=== PATIENT | male | born 1995 | race Caucasian/White ===

== ENCOUNTER 2017-11-24 17:56 | Emergency (ER) | payer BC ==
[2017-11-24 18:03] VITALS: RESP 18
[2017-11-24] MEDS ORDERED: SODIUM CHLORIDE 0.9% 500 ML IV STA (18:10)
[2017-11-24] MEDS ORDERED: DICYCLOMINE 10 MG/ML 2 ML AMP IM STA (18:10)
[2017-11-24] MEDS ORDERED: ONDANSETRON 4 MG/2 ML VIAL IVP STA (18:10)
[2017-11-24] MEDS ORDERED: FAMOTIDINE 20 MG/2 ML VIAL IV STA (18:11)
--- NOTE | 2017-11-24 18:13 | ED ---
General Adult HPI - General Chief complaint: Abdominal Pain Stated complaint: Nausea/Diarrhea Time Seen by Provider: 11/24/17 18:06 Source: patient, RN notes reviewed Mode of arrival: ambulatory Limitations: no limitations - History of Present Illness Initial comments: Patient is a pleasant 22-year-old male presenting to the emergency department with complaints of loose stools. Onset was 48 hours ago. Patient is having 5- 6 small episodes of loose watery stools daily. Patient has some occasional abdominal cramping and indigestion. Patient has slightly decreased appetite. Patient has had some nausea without vomiting. No fever. No history of similar symptoms previously. - Related Data Allergies Allergy/AdvReac Type Severity Reaction Status Date / Time No Known Allergies Allergy Verified 11/24/17 18:03 Review of Systems ROS Statement: Those systems with pertinent positive or pertinent negative responses have been documented in the HPI. ROS Other: All systems not noted in ROS Statement are negative. Constitutional: Denies: fever Eyes: Denies: eye pain ENT: Denies: ear pain Respiratory: Denies: cough Cardiovascular: Denies: chest pain Endocrine: Denies: fatigue Gastrointestinal: Reports: as per HPI, nausea, diarrhea Genitourinary: Denies: dysuria Musculoskeletal: Denies: back pain Skin: Denies: rash Neurological: Denies: weakness Past Medical History Past Medical History: No Reported History History of Any Multi-Drug Resistant Organisms: None Reported Past Surgical History: No Surgical Hx Reported Past Psychological History: Anxiety, Depression Smoking Status: Former smoker Past Alcohol Use History: Daily Past Drug Use History: None Reported General Exam Limitations: no limitations General appearance: alert, in no apparent distress Head exam: Present: atraumatic Eye exam: Present: normal appearance, PERRL ENT exam: Present: normal oropharynx Neck exam: Present: normal inspection Respiratory exam: Present: normal lung sounds bilaterally Cardiovascular Exam: Present: regular rate, normal rhythm Expanded Peripheral pulses: 2+: Posterior Tibialis (R), Posterior Tibialis (L) GI/Abdominal exam: Present: soft, normal bowel sounds. Absent: distended, tenderness, guarding, rebound, rigid, pulsatile mass Extremities exam: Present: normal inspection Neurological exam: Present: alert Psychiatric exam: Present: normal affect, normal mood Skin exam: Present: normal color Course Vital Signs 11/24/17 18:00 Temperature 98.7 F Pulse Rate 79 Respiratory 18 Rate Blood Pressure 165/80 O2 Sat by Pulse 98 Oximetry Medical Decision Making - Medical Decision Making Patient reevaluated and resting comfortably in bed. Patient is feeling better. Patient updated on results. Patient is offered medication for constipation however refuses at this time. Patient will wait for a day or 2 to see how is doing and then try [id number] treatments at that time. Patient states he will consider trying magnesium citrate. Patient is also advised to consider prune juice. - Lab Data Result diagrams: 11/24/17 18:28 11/24/17 18:28 Lab Results 11/24/17 11/24/17 11/24/17 Range/Units 18:28 18:28 19:00 WBC 6.9 (3.8-10.6) k/uL RBC 4.92 (4.30-5.90) m/uL Hgb 14.7 (13.0-17.5) gm/dL Hct 42.9 (39.0-53.0) % MCV 87.1 (80.0-100.0) fL MCH 29.9 (25.0-35.0) pg MCHC 34.4 (31.0-37.0) g/dL RDW 12.4 (11.5-15.5) % Plt Count 204 (150-450) k/uL Neutrophils % 56 % Lymphocytes % 33 % Monocytes % 6 % Eosinophils % 3 % Basophils % 0 % Neutrophils # 3.8 (1.3-7.7) k/uL Lymphocytes # 2.3 (1.0-4.8) k/uL Monocytes # 0.4 (0-1.0) k/uL Eosinophils # 0.2 (0-0.7) k/uL Basophils # 0.0 (0-0.2) k/uL Sodium 144 (137-145) mmol/L Potassium 3.9 (3.5-5.1) mmol/L Chloride 103 (98-107) mmol/L Carbon Dioxide 26 (22-30) mmol/L Anion Gap 15 mmol/L BUN 16 (9-20) mg/dL Creatinine 0.72 (0.66-1.25) mg/dL Est GFR (CKD-EPI)AfAm >90 (>60 ml/min/1.73 sqM) Est GFR (CKD-EPI)NonAf >90 (>60 ml/min/1.73 sqM) Glucose 116 H (74-99) mg/dL Calcium 9.8 (8.4-10.2) mg/dL Total Bilirubin 0.3 (0.2-1.3) mg/dL AST 31 (17-59) U/L ALT 43 (21-72) U/L Alkaline Phosphatase 117 (38-126) U/L Total Protein 7.0 (6.3-8.2) g/dL Albumin 4.4 (3.5-5.0) g/dL Amylase 47 (30-110) U/L Lipase 124 (23-300) U/L Urine Color Yellow Urine Appearance Cloudy (Clear) Urine pH 7.0 (5.0-8.0) Ur Specific [place] 1.028 (1.001-1.035) Urine Protein 1+ H (Negative) Urine Glucose (UA) Negative (Negative) Urine Ketones Negative (Negative) Urine Blood Negative (Negative) Urine Nitrite Negative (Negative) Urine Bilirubin Negative (Negative) Urine Urobilinogen 2.0 (<2.0) mg/dL Ur Leukocyte Esterase Negative (Negative) Urine RBC 2 (0-5) /hpf Amorphous Sediment Few H (None) /hpf Urine Mucus Rare H (None) /hpf - Radiology Data Radiology results: image reviewed (General x-ray shows mild to moderate stool burn. Possible right renal calculi.) Disposition Clinical Impression: Constipation, Abdominal pain Disposition: HOME SELF-CARE Condition: Stable Instructions: Abdominal Pain (ED), Constipation (ED), High Fiber Diet (ED) Additional Instructions: Please follow-up with primary care physician in the next day or 2 for recheck. Return for unable to have bowel movement, vomiting, fevers, increased pain, uncontrolled diarrhea, worsening symptoms or other concerns. Is patient prescribed a controlled substance at d/c from ED?: No Referrals: Sam Mccann DO [Primary Care Provider] - 1-2 days Time of Disposition: 19:42
[2017-11-24 18:39] LABS: Basophils % (A) 0 %; Eosinophils # (A) 0.2 k/uL (0-0.7); Eosinophils % (A) 3 %; HCT 42.9 % (39.0-53.0); HGB 14.7 gm/dL (13.0-17.5); Lymphocytes # (A) 2.3 k/uL (1.0-4.8); Lymphocytes % (A) 33 %; MCH 29.9 pg (25.0-35.0); MCHC 34.4 g/dL (31.0-37.0); MCV 87.1 fL (80.0-100.0); Mean Platelet Volume 8.5; Monocytes # (A) 0.4 k/uL (0-1.0); Monocytes % (A) 6 %; Neutrophils # (A) 3.8 k/uL (1.3-7.7); Neutrophils % (A) 56 %; Platelet Count 204 k/uL (150-450); RBC 4.92 m/uL (4.30-5.90); RDW 12.4 % (11.5-15.5); WBC 6.9 k/uL (3.8-10.6)
[2017-11-24 18:47] LABS: ALT 43 U/L (21-72); AST 31 U/L (17-59); Albumin 4.4 g/dL (3.5-5.0); Alkaline Phosphatase 117 U/L (38-126); Amylase 47 U/L (30-110); Anion Gap 15 mmol/L; Blood Urea Nitrogen 16 mg/dL (9-20); Calcium 9.8 mg/dL (8.4-10.2); Carbon Dioxide 26 mmol/L (22-30); Chloride 103 mmol/L (98-107); Glucose 116 mg/dL (74-99); Lipase 124 U/L (23-300); Potassium 3.9 mmol/L (3.5-5.1); Sodium 144 mmol/L (137-145); Total Bilirubin 0.3 mg/dL (0.2-1.3)
[2017-11-24 19:15] LABS: Amorphous Sediment,Urine Few /hpf; Appearance,Urine Cloudy (Clear); Bilirubin,Urine Negative (Negative); Blood,Urine Negative (Negative); Color,Urine Yellow; Glucose,Urine (UA) Negative (Negative); Ketones,Urine Negative (Negative); Leukocyte Esterase,Urine Negative (Negative); Mucus,Urine Rare /hpf; Nitrite,Urine Negative (Negative); Protein,Urine 1+ (Negative); RBC,Urine 2 /hpf (0-5); Specific Gravity,Urine 1.028 (1.001-1.035)
--- NOTE | 2017-11-24 19:25 | XR ---
EXAMINATION TYPE: XR KUB DATE OF EXAM: 11/24/2017 CLINICAL DATA: 22-year-old male with abdominal pain, [facility] COMPARISON: None FINDINGS: Lung bases are clear. No evidence for free intraperitoneal air. No dilated small bowel or air-fluid levels. Scattered air and stool seen throughout the colon extendi ng distally into the rectum. Mild to moderate stool burden. Possible 5 mm right renal calculus. IMPRESSION: 1. Mild to moderate stool burden. 2. Possible 5 mm right renal calculus. 3.No evidence of bowel obstruction or free intraperitoneal air.
[2017-11-24 19:51] VITALS: BP 137/78; PULSE 80; TEMP 98
== END 2017-11-24 19:51 | disposition home or self-care (01) ==
LOC: EC 17:56
DX: K59.00 Constipation, unspecified (principal); Z87.891 Personal history of nicotine dependence; K30 Functional dyspepsia
CPT/HCPCS: 36415; 80053; 82150; 83690; 85025; 81001; 74018; 99284; 96374; 96375; 96361; 96372; J0500; J2405